=== PATIENT | male | born 1945 | race Caucasian/White ===

== ENCOUNTER → 2018-07-14 | Outpatient (CLI) | payer OTHER, MEDICARE | LOC: MRI 12:30 | DX: M19.012 Primary osteoarthritis, left shoulder (principal); M25.412 Effusion, left shoulder; M25.712 Osteophyte, left shoulder ==

== ENCOUNTER → 2021-10-02 | Outpatient (CLI) | payer OTHER, MEDICARE ==
[~2021-10-02] MED LIST: FISH OIL 1,001000 M2 PO; HYDROCHLOROTHIA25 M1 PO; LOSARTAN POTASS50 MG PO; PRILOSEC OTC20 MG PO; REMERON15 M2 PO; TRAMADOL 50 MG50 MG PO
== END ==
LOC: LAB 07:31
PROVIDERS: ATTEND Student in an Organized Health Care Education/Training Program
DX: Z01.812 Encounter for preprocedural laboratory examination (principal); Z20.822 Contact with and (suspected) exposure to COVID-19

== ENCOUNTER → 2021-10-06 | Outpatient (CLI) | payer OTHER, MEDICARE ==
[~2021-10-06] VITALS: Ht 177.8 cm; Wt 95.3 kg
--- NOTE | 2021-10-09 12:07 | PATH ---
[facility] [address] [place] [address] PATHOLOGY RPT PROCEDURE Name: TRACIBENJAMIN V Room #: REG [facility] Flavia.#: [id number] Admission: 10/06/21 Date of : 47 Discharge: Report #: [id number] Path Case #: [id number] [facility] Accession Number: [id number] . 01 Material submitted: . colon - TRANSVERSE COLON POLYP. Modifiers: transverse . 01 Clinical history: . ESOPHAGOGASTRODUODENOSCOPY, COLONOSCOPY HEMORRHOIDS, RECTAL BLEEDING, REFLUX . 02 Diagnosis: Large bowel "transverse colon polyp", biopsy: - Two minute fragments of benign large bowel mucosa admixed with abundant vegetable material. - Negative for dysplasia and malignancy. (MLK:manan; 10/08/2021) QMS 10/08/2021 1704 Local . 02 Electronically signed: . Marilynn Acosta MD, Pathologist NPI- [id number] . 01 Gross description: . The specimen is received in formalin, labeled "Benjamin Frey, transverse colon polyp". Received from multiple possible segments of pale mejía tissue admixed with a moderate amount of vegetable material measuring 2.3 x 0.8 x 0.1 cm in aggregate dimensions. The specimen is filtered and entirely submitted in cassette A1. ([facility]; 10/06/2021) NRI/NRI 10/06/2021 1710 Local . 02 Pathologist provided ICD-10: Z12.11, K64.9, K92.1 . 02 CPT . 204940 Specimen Comment: A courtesy copy of this report has been sent to [phone], [phone] Specimen Comment: [phone] Specimen Comment: Report sent to / DR MADERA Specimen Comment: A duplicate report has been generated due to demographic updates. Performed at: [facility] [address] [place] [id number] MD Brayan Wood MD Phone: [phone] [address] [address] PATHOLOGY RPT PROCEDURE Name: BENJAMIN FREY Juan M Room #: REG HANNY Nagy#: [id number] Admission: 10/06/21 Date of : 47 Discharge: Report #: [id number] Path Case #: [id number] Performed at: [address] [place] [id number] [address] [id number] MD Pierre Esparza MD Phone: [phone]
== END | disposition home or self-care (01) ==
LOC: GI
PROVIDERS: ATTEND Internal Medicine Gastroenterology
DX: K62.5 Hemorrhage of anus and rectum (principal); K63.5 Polyp of colon; K64.8 Other hemorrhoids; I10 Essential (primary) hypertension; F32.9 Major depressive disorder, single episode, unspecified; F41.9 Anxiety disorder, unspecified; G47.30 Sleep apnea, unspecified; K21.9 Gastro-esophageal reflux disease without esophagitis; Z98.0 Intestinal bypass and anastomosis status; Z98.890 Other specified postprocedural states; Z79.899 Other long term (current) drug therapy; Z87.891 Personal history of nicotine dependence
CPT/HCPCS: 62110; 62900